=== PATIENT | female | born 1985 | race Caucasian/White ===

== ENCOUNTER 2016-12-31 22:49 | Emergency (ER) | payer MEDICAID ==
[~2016-12-31] VITALS: Ht 157.5 cm; Wt 86.2 kg
[~2016-12-31 22:49] MED LIST: ABILIFY20 MG PO; ACETAMINOPHEN-1 EAC1 PO; EXCEDRIN CAPLE1 EACH PO; MOBIC15 MG PO; PENICILLIN V P500 MG PO; TOPAMAX 25 MG T25 M1 PO; VIVARIN200 MG PO; ZONISAMIDE 100100 M1 PO
[2016-12-31 23:28] LABS: BASOPHILS 0.8 % (0.0-2.0); EOSINOPHILS 5.6 % (0.0-3.0); HEMATOCRIT 43.6 % (37.0-47.0); HEMOGLOBIN 14.7 gm/dL (12.0-15.0); LYMPHOCYTES 19.3 % (24.0-44.0); MANUAL DIFF NO; MCH 30.3 pg (26.0-34.0); MCHC 33.7 g/dL (28.0-37.0); MCV 89.9 fL (80.0-100.0); MONOCYTES 6.4 % (1.0-8.0); PLATELET COUNT 256 thou/uL (150-400); POLYS 67.9 % (36.0-66.0); RBC 4.85 mil/uL (4.20-5.00); RDW 12.7 % (10.5-14.5); WBC 11.8 thou/uL (4.0-11.0)
[2016-12-31 23:35] LABS: CALCIUM 8.6 mg/dL (8.5-10.1); CREATININE 0.8 mg/dL (0.6-1.0); POTASSIUM 3.7 mmol/L (3.5-5.1)
[2016-12-31 23:41] LABS: TOTAL BILIRUBIN 0.3 mg/dL (<0.1-1.0); TOTAL PROTEIN 7.3 g/dL (6.4-8.2)
[2017-01-01 01:55] LABS: URINE BILIRUBIN NEGATIVE (Negative); URINE BLOOD NEGATIVE (Negative); URINE COLOR YELLOW; URINE GLUCOSE-RANDOM* NEGATIVE (Negative); URINE KETONES NEGATIVE (Negative); URINE PROTEIN (DIPSTICK) NEGATIVE (Negative); URINE SPECIFIC GRAVITY >= 1.030 (1.003-1.035); URINE UROBILINOGEN 0.2 E.U./dl (0.2-1.0)
[2017-01-01 01:58] LABS: URINE LEUKOCYTES-REFLEX TRACE (Negative)
[2017-01-01] MEDS ORDERED: ACETAMINOPHEN-1 EAC1 PO (01:59)
[2017-01-01] MEDS ORDERED: ZOFRAN4 MG PO (01:59)
[2017-01-01] MEDS ORDERED: BENTYL 20 MG TA20 M1 PO (01:59)
[2017-01-01 04:18] VITALS: BP 104/76
[2017-01-02] MEDS ORDERED: LEVSIN0.125 MG PO (23:06)
[2017-01-02] MEDS ORDERED: MIRALAX17 GM PO (23:06)
== END 2017-01-01 04:19 | disposition home or self-care (01) ==
LOC: ER 22:49
PROVIDERS: Emergency Medicine
DX: K52.9 Noninfective gastroenteritis and colitis, unspecified (principal); F10.99 Alcohol use, unspecified with unspecified alcohol-induced disorder; Z88.5 Allergy status to narcotic agent; Z88.6 Allergy status to analgesic agent